=== PATIENT | male | born 1945 | race Caucasian/White ===

== ENCOUNTER 2019-06-23 14:24 | Emergency (ER) | payer MEDICARE ==
[~2019-06-23] VITALS: Ht 177.8 cm; Wt 82.0 kg
[2019-06-23 14:39] LABS: BASO # 0.1 x10^3/uL (0.0-0.2); BASO % 1 % (0-3); EOS # 0.3 x10^3/uL (0.0-0.7); EOS % 4 % (0-3); HEMATOCRIT 44.2 % (39.0-53.0); HEMOGLOBIN 15.3 g/dL (13.0-17.5); LYMPH # 1.8 x10^3/uL (1.0-4.8); LYMPH % 24 % (24-48); MEAN CORPUSCULAR HEMOGLOBIN 32 pg (25-35); MEAN CORPUSCULAR HGB CONC 35 g/dL (31-37); MEAN CORPUSCULAR VOLUME 91 fL (79-100); MONO # 0.7 x10^3/uL (0.0-1.1); MONO % 9 % (0-9); NEUT # 4.6 x10^3/uL (1.8-7.7); NEUT % 62 % (31-73); PLATELET COUNT 267 x10^3/uL (140-400); RED BLOOD COUNT 4.85 x10^6/uL (4.30-5.70); RED CELL DISTRIBUTION WIDTH 13.3 % (11.5-14.5); WHITE BLOOD COUNT 7.5 x10^3/uL (4.0-11.0)
[2019-06-23] MEDS ORDERED: IV NORMAL SALINE 1000ML BAG 1,000 ML IV ONE (14:45)
[2019-06-23 14:53] LABS: CALCIUM 9.4 mg/dL (8.5-10.1); CREATININE 1.2 mg/dL (0.7-1.3); POTASSIUM 3.9 mmol/L (3.5-5.1)
[2019-06-23 14:54] LABS: ETHANOL < 10 mg/dL (0-10); SALIC < 2.8 mg/dL (2.8-20.0)
[2019-06-23 14:59] LABS: ALBUMIN 4.5 g/dL (3.4-5.0); ALBUMIN/GLOBULIN RATIO 1.5 (1.0-1.7); TOTAL BILIRUBIN 0.6 mg/dL (0.2-1.0); TOTAL PROTEIN 7.6 g/dL (6.4-8.2)
--- NOTE | 2019-06-23 15:14 | RAD ---
CT scan of the head without contrast 06/23/2019 Clinical History: Altered mental status. Generalized weakness. Technique: Unenhanced, contiguous, 5 mm axial sections were obtained through the head. One or more of the following individualized dose reduction techniques were utilized for this study: 1. Automated exposure control. 2. Adjustment of the mA and/or kV according to patient size. 3. Use of iterative reconstruction technique. Findings: Comparison study is dated 08/16/2010. There is generalized parenchymal atrophy. Areas of decreased attenuation are seen within the periventricular and subcortical white matter of both cerebral hemispheres consistent with areas of small vessel ischemic disease. No acute parenchymal abnormality is seen. No extra-axial fluid collection is noted. No skull fracture is seen. Impression: No acute intracranial abnormality is seen. Electronically signed by: Sarmad Valle MD (06/23/2019 3:10 PM) [facility] [place]
--- NOTE | 2019-06-23 15:15 | RAD ---
AP portable chest radiograph 06/23/2019 Clinical History: Shortness of breath. An AP erect portable digital radiograph of the chest was obtained. The cardiac silhouette is normal in size. The thoracic aorta is mildly tortuous. Atherosclerotic calcification thoracic aorta is seen. No acute pulmonary infiltrate is noted. No pneumothorax or pleural effusion is seen. Degenerative changes are seen involving the thoracic spine along with both shoulders. IMPRESSION: No acute abnormality is seen. Electronically signed by: Sarmad Valle MD (06/23/2019 3:12 PM) [facility] [place]
[2019-06-23 15:47] LABS: BILIRUBIN,URINE NEGATIVE (NEG); CLARITY,URINE CLEAR; COLOR,URINE YELLOW; NITRITE,URINE NEGATIVE (NEG); PROTEIN,URINE NEGATIVE (NEG-TRACE); UROBILINOGEN,URINE 0.2 mg/dL (0.2 mg/dL)
[2019-06-23 16:02] LABS: BARBITURATES NEG (NEG); BENZODIAZEPINES NEG (NEG); CANNABINOIDS NEG (NEG); COCAINE NEG (NEG); METHADONE NEG (NEG); OPIATES NEG (NEG); PHENCYCLIDINE NEG (NEG)
[2019-06-23 16:03] LABS: BACTERIA,URINE 0 /HPF (0-FEW); RBC,URINE 0 /HPF (0-2); WBC,URINE OCC /HPF (0-4)
[2019-06-23 16:15] LABS: AMPHETAMINE/METHAMPHETAMINE NEG (NEG)
--- NOTE | 2019-06-23 17:13 | PHYS DOC ---
Past Medical History Past Medical History: High Cholesterol Additional Past Medical Histor: VERTIGO Past Surgical History: No Surgical History Smoking Status: Never Smoker Alcohol Use: Occasionally Adult General Chief Complaint Chief Complaint: ANXIETY/PANIC ATTACK HPI HPI Patient is a 74 year old [male brought in by ambulance with a altered mental status. She was driving home he began to feel dizzy, lightheaded like as though he was not having control over his own body on cable tv installer arrival he was kind of slumped over the steering wheel he was awake he was following commands there was no trauma. Patient last had a small breakfast in the morning he had walked on the treadmill he had not yet had lunch or dinner. Blood sugar was noted to be 65 patient denied any chest pain or shortness of breath however he was hyperventilating on my initial arrival with carpal pedal spasm denies history of anxiety however medications for high cholesterol but does not take any diabetes medications his hemoglobin A1c was 5.9 Review of Systems Review of Systems Constitutional: Denies fever or chills [] Musculoskeletal: Denies back pain or joint pain [] Integument: Denies rash or skin lesions [] Neurologic: Denies headache, focal weakness or sensory changes [] Endocrine: Denies polyuria or polydipsia [] All other systems were reviewed and found to be within normal limits, except as documented in this note. Current Medications Current Medications Current Medications Medications (Trade) Dose Ordered Sig/Donald Start Time Stop Time Status Last Admin Dose Admin Lorazepam (Ativan Inj) 1 mg 1X ONCE 06/23/19 14:45 06/23/19 14:46 DC 06/23/19 15:02 1 MG Sodium Chloride 1,000 ml @ 1,000 mls/hr 1X ONCE 06/23/19 14:45 06/23/19 15:44 DC 06/23/19 15:02 1,000 MLS/HR Allergies Allergies Allergies Coded Allergies Type Severity Reaction Last Updated Verified No Known Drug Allergies 06/23/19 No Physical Exam Physical Exam Constitutional: Well developed, well nourished, no acute distress, non-toxic appearance. [] HENT: Normocephalic, atraumatic, bilateral external ears normal, oropharynx moist, no oral exudates, nose normal. [] Eyes: PERRLA, EOMI, conjunctiva normal, no discharge. [] Neck: Normal range of motion, no tenderness, supple, no stridor. [] Cardiovascular:Heart rate regular rhythm, no murmur [] Lungs & Thorax: Bilateral breath sounds clear to auscultation [] Abdomen: Bowel sounds normal, soft, no tenderness, no masses, no pulsatile masses. [] Skin: Warm, dry, no erythema, no rash. [] Back: No tenderness, no CVA tenderness. [] Extremities: No tenderness, no cyanosis, no clubbing, ROM intact, no edema. [] Neurologic: Alert and oriented X 3, normal motor function, normal sensory function, no focal deficits noted except for carpal pedal spasm as well as some hyperventilating and some shaking this improved after he gave Ativan in fact resolved completely and he was neurologically intact in the emergency room. Psychologic: Affect normal, judgement normal, mood normal. [] Current Patient Data Vital Signs Vital Signs Date Time Temp Pulse Resp B/P (MAP) Pulse Ox O2 Delivery O2 Flow Rate FiO2 06/23/19 14:25 97.7 88 20 130/81 (97) 95 Room Air 97.7 Lab Values Laboratory Tests Test 06/23/19 14:29 06/23/19 14:30 06/23/19 15:39 Glucose (Fingerstick) 122 mg/dL (70-99) H White Blood Count 7.5 x10^3/uL (4.0-11.0) Red Blood Count 4.85 x10^6/uL (4.30-5.70) Hemoglobin 15.3 g/dL (13.0-17.5) Hematocrit 44.2 % (39.0-53.0) Mean Corpuscular Volume 91 fL (79-100) Mean Corpuscular Hemoglobin 32 pg (25-35) Mean Corpuscular Hemoglobin Concent 35 g/dL (31-37) Red Cell Distribution Width 13.3 % (11.5-14.5) Platelet Count 267 x10^3/uL (140-400) Neutrophils (%) (Auto) 62 % (31-73) Lymphocytes (%) (Auto) 24 % (24-48) Monocytes (%) (Auto) 9 % (0-9) Eosinophils (%) (Auto) 4 % (0-3) H Basophils (%) (Auto) 1 % (0-3) Neutrophils # (Auto) 4.6 x10^3/uL (1.8-7.7) Lymphocytes # (Auto) 1.8 x10^3/uL (1.0-4.8) Monocytes # (Auto) 0.7 x10^3/uL (0.0-1.1) Eosinophils # (Auto) 0.3 x10^3/uL (0.0-0.7) Basophils # (Auto) 0.1 x10^3/uL (0.0-0.2) Sodium Level 138 mmol/L (136-145) Potassium Level 3.9 mmol/L (3.5-5.1) Chloride Level 103 mmol/L (98-107) Carbon Dioxide Level 19 mmol/L (21-32) L Anion Gap 16 (6-14) H Blood Urea Nitrogen 27 mg/dL (8-26) H Creatinine 1.2 mg/dL (0.7-1.3) Estimated GFR (Cockcroft-Gault) 59.0 BUN/Creatinine Ratio 23 (6-20) H Glucose Level 118 mg/dL (70-99) H Calcium Level 9.4 mg/dL (8.5-10.1) Total Bilirubin 0.6 mg/dL (0.2-1.0) Aspartate Amino Transferase (AST) 28 U/L (15-37) Alanine Aminotransferase (ALT) 30 U/L (16-63) Alkaline Phosphatase 102 U/L (46-116) Troponin I Quantitative < 0.017 ng/mL (0.000-0.055) Total Protein 7.6 g/dL (6.4-8.2) Albumin 4.5 g/dL (3.4-5.0) Albumin/Globulin Ratio 1.5 (1.0-1.7) Salicylates Level < 2.8 mg/dL (2.8-20.0) L Salicylate Last Dose Date Salicylate Last Dose Time Ethyl Alcohol Level < 10 mg/dL (0-10) Urine Collection Type Unknown Urine Color Yellow Urine Clarity Clear Urine pH 5.0 Urine Specific [place] 1.015 Urine Protein Negative mg/dL (NEG-TRACE) Urine Glucose (UA) Negative mg/dL (NEG) Urine Ketones (Stick) Negative mg/dL (NEG) Urine Blood Negative (NEG) Urine Nitrite Negative (NEG) Urine Bilirubin Negative (NEG) Urine Urobilinogen Dipstick 0.2 mg/dL (0.2 mg/dL) Urine Leukocyte Esterase Negative (NEG) Urine RBC 0 /HPF (0-2) Urine WBC Occ /HPF (0-4) Urine Bacteria 0 /HPF (0-FEW) Urine Mucus Slight /LPF Urine Opiates Screen Neg (NEG) Urine Methadone Screen Neg (NEG) Urine Barbiturates Neg (NEG) Urine Phencyclidine Screen Neg (NEG) Urine Amphetamine/Methamphetamine Neg (NEG) Urine Benzodiazepines Screen Neg (NEG) Urine Cocaine Screen Neg (NEG) Urine Cannabinoids Screen Neg (NEG) Urine Ethyl Alcohol Neg (NEG) Laboratory Tests 06/23/19 14:30 Laboratory Tests 06/23/19 14:30 EKG EKG []EKG shows a normal sinus rhythm with a rate of 84 no acute extremity changes noted interpreted by me the time of encounter Radiology/Procedures Radiology/Procedures [] The cardiac silhouette is normal in size. The thoracic aorta is mildly tortuous. Atherosclerotic calcification thoracic aorta is seen. No acute pulmonary infiltrate is noted. No pneumothorax or pleural effusion is seen. Degenerative changes are seen involving the thoracic spine along with both shoulders. IMPRESSION: No acute abnormality is seen. Electronically signed by: Sarmad Castellon MD (06/23/2019 3:12 PM) [facility] [place] DICTATED and SIGNED BY: SARMAD CASTELLON MD DATE: 06/23/19 1512 Impressions: Findings: Comparison study is dated 08/16/2010. There is generalized parenchymal atrophy. Areas of decreased attenuation are seen within the periventricular and subcortical white matter of both cerebral hemispheres consistent with areas of small vessel ischemic disease. No acute parenchymal abnormality is seen. No extra-axial fluid collection is noted. No skull fracture is seen. Impression: No acute intracranial abnormality is seen. Electronically signed by: Sarmad Castellon MD (06/23/2019 3:10 PM) [facility] [place] DICTATED and SIGNED BY: SARMAD CASTELLON MD DATE: 06/23/19 1510 Course & Med Decision Making Course & Med Decision Making Pertinent Labs and Imaging studies reviewed. (See chart for details) 74-year-old male presenting with. Of altered mental status with shaking symptoms dizziness found her blood sugar 65 there is a borderline diabetic he is trying to control that with diet he had not eaten since breakfast Patient was observed in the emergency room he had a good meal blood sugar was quite good 120 range. We did an extensive workup including 2 troponins a second troponin is currently pending I anticipated to be negative no signs of ischemia or central nervous system injury at all patient will be plan for discharge home with a second troponin negative to self-care with instructions of close monitoring of his diet regular meals follow-up with primary doctor. Alexandra Disclaimer Dragon Disclaimer This electronic medical record was generated, in whole or in part, using a voice recognition dictation system. Departure Departure Impression: Primary Impression: Hypoglycemia Disposition: 01 HOME, SELF-CARE Condition: STABLE Referrals: YOBANI FOLEY MD (PCP) BAO LOPEZ MD Jun 23, 2019 17:13
[2019-06-23 17:30] VITALS: BP 128/68
--- NOTE | 2019-06-23 23:38 | EKG ---
[facility] [address] [place] [address] Test Date: 2019-06-23 Test Time: 14:39:53 Pat Name: ALINE CLARK Department: Room: Gender: M Promotions Producer: : 1945 Requested By: BAO LOPEZ Order Number: [id number] Reading MD: Measurements Intervals [place] Rate: 84 P: 42 DE: 178 QRS: -62 QRSD: 110 T: 75 QT: 374 QTc: 445 Interpretive Statements SINUS RHYTHM ABNORMAL LEFT AXIS DEVIATION LEFT ANTERIOR FASCICULAR BLOCK LVH WITH REPOLARIZATION ABNORMALITY QRS(T) CONTOUR ABNORMALITY CONSIDER ANTEROSEPTAL MYOCARDIAL DAMAGE ABNORMAL ECG RI6.01 No previous ECG available for comparison
== END 2019-06-23 17:58 | disposition home or self-care (01) ==
LOC: ER 14:24
DX: E16.2 Hypoglycemia, unspecified (principal); R42 Dizziness and giddiness; R51 Headache; E78.00 Pure hypercholesterolemia, unspecified
CPT/HCPCS: 36415; 70450; 71045; 80053; 80307; 80329; 81001; 82962; 84484; 85025; 93005; 96361; 96374; 99285; G0480; J2060; J7030

== ENCOUNTER → 2020-09-26 | Outpatient (CLI) | payer MEDICARE ==
[~2020-09-26] MED LIST: ASCO500C9 PO; ASPI81TA59 PO; ATOR20TA58 PO; COD1CAPS6 PO; FEXO180T16 PO; FOLI0.4T5 PO; GLUC-11 PO; MAGN250T10 PO; METH500C3 PO; SELE200C PO; VITA1TAB19 PO
--- NOTE | 2020-09-26 12:47 | RAD ---
MR#: [id number] Date of Study: 09/26/2020 Ordering Physician: ASHER DURHAM, Referring Physician: RAQUEL THOMASON Tech: RT Tyrell Serrano) (N) APPROVED REPORT Test Type: Exercise Stress Nurse/Tech: Bekah Wyatt R.N. Test Indications: GOODEN Cardiac History: DM, high cholesterol Medications: See Electronic Medical Record Medical History: See Electronic Medical Record Resting ECG: SR Resting Heart Rate: 72 bpm Resting Blood Pressure: 146/75mmHg Pretest Chest Pain: None Nurse/Tech Notes S1S2, lungs CTA Consent: The procedure was explained to the patient in lay terms. Informed consent was witnessed. Landen eout was entered into [employer]. History and Stress Test performed by RT Tyrell Serrano) (N) Pharm. Details There was low-level exercise performed along with the infusion Stress Symptoms SOA POST EXERCISE Reason for Termination: Reached target heart rate Target HR: Yes Max HR: 132 bpm 108% of Maximum Predicted HR: 122 bpm Exercise duration: 7:05 min:sec, 3 Stage Exercise capacity: 10.0METs Max Blood Pressure: 154/78mmHg Blood Pressure response to exercise: Normal blood pressure response during stress. Heart Rate response to exercise: wnl Chest Pain: No. Arrhythmia: No. ST Change: No. INTERPRETATION Stress EKG Conclusion: Baseline EKG showed sinus rhythm. No ischemic changes at peak stress. No arr hythmias. Imaging Protocol IMAGE PROTOCOL: Rest Tc-99m/stress Tc-99m 1 day Rest: Stress: Viability: Radiopharm.Tc99m [id number] Sestamibi [id number] 31.6mCi Duration 15min. 10min. Img Date 09/26/2020 09/26/2020 Inj-Img [id number]. 60min. Post-Injection Exercise: 1 MINUTE Rest Admin Site:IV - Left AntecubitalAdministrator:RT Maggie (John)(N) Stress Admin Site: IV - Left AntecubitalAdministrator: RT Tyrell Serrano)(N) STRESS DATA End Diast. Vol.82.0mlAv. Heart Rate78.0bpm End Syst. Vol.14.0mlCO Index BSA5.3L/min Myocardial Vezy425.0gEject. Wiutikly26.0% Stress Rates Pk. Fill Rate2.60EDV/secLVtime Pk. Fill 160.24msec Pk. Empty Rate3.32ESV/secLVtime Pk. Eject91.37msec 1/3 Pk. Fill1.17EDV/sec Stress Scores Regional WT0.00Summed WT4.00 Regional WM0.00Summed WM0.00 Study quality was good. Left Ventricular size was Normal at Rest and Stress. Lung uptake was . Left Ventricular ejection fraction is 79%. The rest and stress images show normal perfusion, normal contraction and thickening. LV Perf. Quant 17 Seg. SSS1.00 17 Seg. SRS7.00 17 Seg. SDS0.00 Stress Defect Extent (% LAD)1.30Rest Defect Extent (% LAD)11.90Rev. Defect Extent (% LAD)0.00 Stress Defect Extent (% LCX) 0.00Rest Defect Extent (% LCX)7.50Rev. Defect Extent (% LCX)0.00 Stress Defect Extent (% RCA)0.00Rest Defect Extent (% RCA)16.70Rev. Defect Extent (% RCA)0.00 Stress Defect Extent (% MAURILIO)0.90Rest Defect Extent (% MAURILIO)13.00Rev. Defect Extent (% MAURILIO)0.00 Conclusion 1. Treadmill exercise cardioisotope stress test did not show any evidence of ischemia or infarct. 2. Normal left ventricular systolic function with ejection fraction calculated at 79%. 3. Low risk for cardiac events. Signed by : Domenic Anaya, Electronically Approved : 09/26/2020 12:46:32
== END ==
LOC: NM 08:13
PROVIDERS: ATTEND Internal Medicine Cardiovascular Disease
DX: R06.09 Other forms of dyspnea (principal)
CPT/HCPCS: 78452; 93017; A9500